=== PATIENT | male | born 1970 | race African-American/Black ===

== ENCOUNTER 2019-03-11 18:32 | Observation (INO) | payer MEDICARE, OTHER ==
[~2019-03-11] VITALS: Ht 177.8 cm; Wt 94.5 kg
--- NOTE | ~2019-03-11 | ST ---
PATIENT:HOLDEN FLETCHER MEDICAL RECORD: [id number] SEX: M LOCATION:D. D.212 ORDER #: ADMISSION DATE: 03/11/19 AGE OF PATIENT: 48 REFERRING PHYSICIAN: INTERPRETING PHYSICIAN: ENZO CRAWFORD MD DATE OF SERVICE: 03/13/2019 PROCEDURE: Nuclear stress test. INDICATION: Chest pain of unknown etiology. He was exercised on standard Lexiscan protocol with 33 mCi of sestamibi injected at peak stress, 11 mCi used previously for rest images. FINDINGS: Gated SPECT reveals preserved ejection fraction of greater than 60% with good wall motion and thickening and brightening throughout all segments. SPECT imaging Cardiolite was used as myocardial fusion agent. There is homogeneous uptake throughout all segments at rest and stress with no evidence of inducible ischemia or previous infarction. OVERALL IMPRESSION: 1. This is a normal nuclear stress test with no evidence of inducible ischemia or previous infarction. 2. Gated SPECT reveals a preserved ejection fraction of greater than 60%. In this patient with ongoing symptomatology, the current scan does not suggest the presence of hemodynamically significant coronary artery disease. Evaluate noncardiac etiology of chest pain. TRANSINT:[id number] Voice Confirmation ID: [id number] DOCUMENT ID: [id number] ENZO CRAWFORD MD CC: [id number] DICTATION DATE: 03/13/19 1326 HOT TAR ROOFER: 03/13/192018 DIS IN 03/13/19 [address] [id number] [place] [address]
--- NOTE | ~2019-03-11 | DS ---
PATIENT:HOLDEN FLETCHER :66 MEDICAL RECORD: [id number] DISCHARGE SUMMARY ADMISSION DATE: 03/11/19 DISCHARGE DATE: 03/13/19 DIAGNOSES 1. Chest pain. 2. Normal nuclear stress test. 3. Hypertension. Mr. Fletcher presents with chest discomfort; however, nuclear stress test was absolutely normal. His chest pain is noncardiac in etiology. No further cardiac workup needs to be ascertained. TRANSINT:[id number] Voice Confirmation ID: [id number] DOCUMENT ID: [id number] ENZO CRAWFORD MD CC: [id number] DICTATION DATE: 03/13/19 1326 PRODUCT SALES REPRESENTATIVE: 03/13/192052 DIS IN 03/13/19 [place] [id number] [place] [id number]
[2019-03-11] MEDS ORDERED: BP MED (18:42)
[2019-03-11 19:10] VITALS: BP 146/92
[2019-03-11 19:16] LABS: BASOPHILS 0.1 % (0-2); EOSINOPHILS 0.7 % (0-7); HEMOGLOBIN 14.2 g/dL (13.5-17.5); IMMATURE GRANULOCYTES 0.3 % (0-5); LYMPHOCYTES 36.3 % (15-50); MCH 26.6 pg (26.0-34.0); MCHC 35.5 g/dL (31.0-37.0); MCV 74.9 fL (80.0-100.0); MEAN PLATELET VOLUME 8.6 fL (7.4-10.4); MONOCYTES 7.2 % (2-11); NEUTROPHILS 55.4 % (40-80); PLATELET COUNT 353 10x3/uL (130-400); RBC 5.34 10x6/uL (4.20-6.10); RDW 16.1 % (11.5-14.5); WBC 6.9 10x3/uL (4.8-10.8)
[2019-03-11 19:27] LABS: APTT 25.8 SECONDS (22.8-39.4); INR 1.02 (0.85-1.17); PROTIME 12.9 SECONDS (11.6-15.0)
[2019-03-11 19:37] LABS: ALBUMIN 3.5 g/dL (3.4-5.0); ALKALINE PHOSPHATASE 112 U/L (46-116); ALT (SGPT) 26 U/L (10-68); BILIRUBIN - TOTAL 0.19 mg/dL (0.2-1.3); CALC OSMOLALITY 276 mosm/kg (275-300); CALCIUM 8.7 mg/dL (8.5-10.1); CARBON DIOXIDE 26.3 mmol/L (21.0-32.0); CHLORIDE - SERUM 103 mmol/L (98-107); GLUCOSE 132 mg/dL (74-106); POTASSIUM - SERUM 3.4 mmol/L (3.5-5.1); PROTEIN - SERUM 7.4 g/dL (6.4-8.2); SODIUM 138 mmol/L (136-145); UREA NITROGEN 10 mg/dL (7-18); eGFR NON AFRICAN AMERICAN 84 mL/min (90-120)
[2019-03-11 19:48] LABS: CKMB 2.9 U/L (0.0-3.6); CREATINE KINASE 135 UL (21-232)
[2019-03-11 19:49] LABS: TROPONIN-I < 0.017 ng/mL (0.000-0.060)
[2019-03-11 20:00] VITALS: BP 144/91
[2019-03-11 20:15] VITALS: BP 122/88
--- NOTE | 2019-03-11 20:28 | NUR ---
ADMIT TO ROOM 2120 FROM ER. ADMISSION HISTORY AND ASSESSMENT INITIATED. HOME MED RECOLLECTION IS POOR. PLAN OF CARE INITIATED. TELEMETRY STARTED.
[2019-03-12] VITALS: BP 137/85
[2019-03-12 02:46] LABS: BASOPHILS 0.3 % (0-2); EOSINOPHILS 0.6 % (0-7); HEMATOCRIT 39.7 % (42.0-54.0); HEMOGLOBIN 13.9 g/dL (13.5-17.5); IMMATURE GRANULOCYTES 0.3 % (0-5); LYMPHOCYTES 36.5 % (15-50); MCH 26.4 pg (26.0-34.0); MCV 75.3 fL (80.0-100.0); MEAN PLATELET VOLUME 8.6 fL (7.4-10.4); MONOCYTES 12.3 % (2-11); PLATELET COUNT 309 10x3/uL (130-400); RBC 5.27 10x6/uL (4.20-6.10); RDW 16.1 % (11.5-14.5); WBC 6.9 10x3/uL (4.8-10.8)
[2019-03-12 02:49] VITALS: BP 137/85; Ht 177.8 cm; Wt 94.5 kg
[2019-03-12 03:20] LABS: ALBUMIN 3.2 g/dL (3.4-5.0); ALKALINE PHOSPHATASE 105 U/L (46-116); ALT (SGPT) 22 U/L (10-68); BILIRUBIN - TOTAL 0.21 mg/dL (0.2-1.3); CALC OSMOLALITY 276 mosm/kg (275-300); CALCIUM 8.4 mg/dL (8.5-10.1); CARBON DIOXIDE 27.3 mmol/L (21.0-32.0); CHLORIDE - SERUM 105 mmol/L (98-107); CKMB 2.1 U/L (0.0-3.6); CREATINE KINASE 123 UL (21-232); CREATININE - SERUM 0.9 mg/dL (0.6-1.3); GLUCOSE 104 mg/dL (74-106); POTASSIUM - SERUM 3.5 mmol/L (3.5-5.1); PROTEIN - SERUM 6.8 g/dL (6.4-8.2); SODIUM 140 mmol/L (136-145); UREA NITROGEN 8 mg/dL (7-18); eGFR NON AFRICAN AMERICAN > 90 mL/min (90-120)
[2019-03-12 03:21] LABS: TROPONIN-I < 0.017 ng/mL (0.000-0.060)
[2019-03-12 04:00] VITALS: BP 132/90
--- NOTE | 2019-03-12 06:00 | NUR ---
PT SLEPT THROUGH THE NIGHT. VOICING NO REPORTS OF CHEST PAIN OR DISCOMFORT. IVF INFUSING. HAS BEEN NPO SINCE MIDNIGHT FOR CARDIAC EVAL PER MD. SR PER TELEMETRY. CPOC.
[2019-03-12] MEDS ORDERED: NORVASC10 MG PO (07:55)
[2019-03-12] MEDS ORDERED: COREG12.5 MG PO (07:56)
[2019-03-12] MEDS ORDERED: METHADONE 10 MG10 MG PO (07:56)
[2019-03-12 08:31] VITALS: BP 148/95
--- NOTE | 2019-03-12 09:00 | NUR ---
PT RESTING IN BED, SHIFT ASSESSMENT PERFORMED. DENIES ANY NEEDS AT THIS TIME, WILL CONT TO FOLLOW POC
[2019-03-12 09:02] LABS: CKMB 1.2 U/L (0.0-3.6); CREATINE KINASE 105 UL (21-232); TROPONIN-I < 0.017 ng/mL (0.000-0.060)
--- NOTE | 2019-03-12 11:23 | NUR ---
PT STATES HE HAS NOT TAKEN METHADONE IN OVER A MONTH AND HAS NO METHADONE AT HOME. PT STATES HE DOES NOT CURRENTLY HAVE ANY BACK PAIN. DISCUSSED CONCERNS WITH . NEW ORDER RECIEVED TO D/C METHADONE
--- NOTE | 2019-03-12 12:20 | NUR ---
PT WALKING AROUND UNIT PUSHING IV POLE. DENIES ANY NEEDS AT THIS TIME, WILL CONT TO FOLLOW POC
[2019-03-12 13:53] VITALS: BP 129/86
--- NOTE | 2019-03-12 16:25 | MORECARE ---
CASE MANAGEMENT DISCHARGE SUMMARY PATIENT: HOLDEN FLETCHER UNIT: [id number] ADM DATE: 03/11/19 AGE: 48 : 66 SEX: M ROOM/BED: D.2120 AUTHOR: RENNY CAPONE PHYSICIAN: REFERRING PHYSICIAN: ENZO CRAWFORD MD DATE OF SERVICE: 03/12/19 Discharge Plan Patient Name: HOLDEN FLETCHER [facility] [facility] 1970 Planned Disposition: Anticipated Discharge Date: Discharge Date: Expected LOS: Initial Reviewer: [email or web address] Initial Review Date: 03/11/2019 Generated: 03/12/19 5:25 pm Coverage Notice Reviewer: [email or web address] Randall Thorpe Notice Issued Date-Time: 03/12/2019 16:00 Notice Type: Medicare Outpatient Observation Notice Notice Delivered To: Patient Relationship to Patient: Self Command And Control Officer Name: Delivery Method: HAND - Hand Delivered Breanna Days: Prior Verbal Notification: Recipient Understood Notice: Yes Recipient Signature: Yes Med Rec Note Co-signed by Attending: Coverage Notice Comment: Patient Name: HOLDEN FLETCHER Page [id number] at 1625 All edits/amendments must be made on the electronic document DICTATION DATE: 03/12/191624 VULCANIZER: PRECIOUS 03/12/19 1625 RPT#: [id number] DC DATE: STATUS: ADM IN [facility] [address] [place] [address] END OF REPORT
--- NOTE | 2019-03-12 18:07 | NUR ---
PT RESTING IN BED WATCHING TV. DENIES ANY NEEDS AT THIS TIME, WILL CONT TO FOLLOW POC
--- NOTE | 2019-03-12 19:20 | NUR ---
RECEIVED REPORT, WILL ASSUME CARE OF PT, PT IS WALKING IN [place], WILL CONTINUE PLAN OF CARE
[2019-03-12 20:00] VITALS: BP 126/75
--- NOTE | 2019-03-12 22:02 | NUR ---
PT IS UP IN SHOWER
[2019-03-13] VITALS: BP 127/85
[2019-03-13 04:00] VITALS: BP 123/80
--- NOTE | 2019-03-13 04:28 | NUR ---
I have reviewed this patient and I concur with the Shift Assessment completed by the Licensed Practical Nurse today this shift.
--- NOTE | 2019-03-13 07:36 | NUR ---
PT RESTING IN BED, SHIFT ASSESSMENT PERFORMED. VITALS TAKEN AND WNL. DENIES ANY NEEDS AT THIS TIME. WILL CONT TO FOLLOW POC
[2019-03-13 07:38] VITALS: BP 145/93
--- NOTE | 2019-03-13 08:33 | NUR ---
SPOKE WITH [employer] TECH. TECH REQUEST NURSE TO HOLD AM MEDS UNTIL PT RETURNS FROM STRESS TEST. STRESS TEST IS SCHEDULED FOR 1000 THIS AM. TECH IS TALKING WITH PT AND EXPLAINING PROCEDURE TO PT AT THIS TIME
--- NOTE | 2019-03-13 09:20 | NUR ---
PT LEFT FLOOR WITH [employer] TECH
--- NOTE | 2019-03-13 11:28 | HP ---
PATIENT: HOLDEN FLETCHER MEDICAL RECORD: [id number] ACCOUNT: [id number] LOCATION:[address] : [birth year] ADMISSION DATE: 03/11/19 PCP: CHARLEEN HOLLAND HISTORY AND PHYSICAL EXAMINATION ADMITTING DIAGNOSES: 1. Chest pain compatible with angina. 2. Hypertension. 3. Family history of coronary artery disease. 4. Hyperlipidemia. 5. Smoking history. HISTORY OF PRESENT ILLNESS: This is a gentleman who presents with ongoing chest discomfort, it has been in a worsening fashion. It has been going on for quite some time; however, it has now progressed to where it is coming at rest and he is having shortness of breath, dyspnea on exertion with it as well. He does have a history of hypertension, history of premature coronary artery disease in his family, history of hyperlipidemia. He is on beta gustavo and calcium channel gustavo despite these. The chest pain has been worsening. His EKG is with no ST-T abnormalities. His troponins are normal. He continues to have episodes of chest discomfort. PHYSICAL EXAMINATION: GENERAL APPEARANCE: Well-nourished, well-developed, appears stated age. Level of distress, comfortable. PSYCHIATRIC: Mental status, alert, normal affect. Orientation, oriented to time, place and person. EYES: Lids and conjunctiva, noninjected. No discharge, no pallor. ENT: Lips, teeth, gums, normal dentition. Oropharynx, no cyanosis, no pallor. NECK: Carotid arteries, bilateral normal upstroke, no bruits, no thrills. JUGULAR VEINS: No jugular venous pressure or distention. CERVICAL LYMPH NODES: Nontender, nonenlarged. THYROID: Not enlarged. Nontender. No nodules. LUNGS: Respiratory effort, unlabored. CHEST: Normal curvature. No thoracic deformity. No chest wall tenderness. Percussion, resonant. Auscultation, clear. No wheezes, no rales, no rhonchi. CARDIOVASCULAR: Precordial exam, nondisplaced. No heaves or pericardial thrills. Rate and rhythm, regular. Heart sounds, normal S1, normal S2. No S3, no gallop, no rub. Systolic murmur, not heard. Diastolic murmur, not heard. EXTREMITIES: No cyanosis, no edema. Peripheral pulses, full and equal in all extremities, except as noted. No bruits appreciated. ABDOMEN: Soft, nondistended. Normal aorta. No bruit. Nontender. No masses. Liver, nontender, no hepatomegaly. Spleen, nontender, no splenomegaly. MUSCULOSKELETAL: No joint tenderness. No joint swelling. No erythema. NEUROLOGICAL: Normal gait, normal strength, normal tone. SKIN: Warm and dry. OVERALL IMPRESSION: We will maximize his medical therapy with the addition of long-acting nitrates to his calcium-channel gustavo and beta-gustavo. PLAN: For risk stratification with stress testing Cardiolite imaging. Further care depends upon findings of the stress test. TRANSINT:[id number] Voice Confirmation ID: [id number] DOCUMENT ID: [id number] HISTORY AND PHYSICAL [id number] HOLDEN FLETCHER JEFFREY MD at 1128 CC: [id number] DICTATION DATE: 03/12/19 0952 PAPER NOVELTY MAKER: 03/12/19 1022 ADM IN [id number] [place] [address]
--- NOTE | 2019-03-13 13:30 | NUR ---
DISCHARGE INSTRUCTIONS REVIEWED WITH PT AND ALL QUESTIONS ANSWERED. PIV REMOVED WITH CATHETER TIP INTACT. ASSISTED PT TO FRONT OF HOSPITAL VIA WHEELCHAIR.
--- NOTE | 2019-03-14 09:20 | MORECARE ---
CASE MANAGEMENT DISCHARGE SUMMARY PATIENT: HOLDEN FLETCHER UNIT: [id number] ADM DATE: 03/11/19 AGE: 48 : 66 SEX: M ROOM/BED: D.2120 AUTHOR: RENNY CAPONE PHYSICIAN: REFERRING PHYSICIAN: ENZO CRAWFORD MD DATE OF SERVICE: 03/14/19 Discharge Plan Patient Name: HOLDEN FLETCHER [facility] [facility] 1970 Planned Disposition: Home Anticipated Discharge Date: 03/13/19 Discharge Date: 03/13/2019 Expected LOS: 2 Initial Reviewer: [email or web address] Initial Review Date: 03/11/2019 Generated: 03/14/19 10:19 am Coverage Notice Reviewer: [email or web address] Randall Thorpe Notice Issued Date-Time: 03/12/2019 16:00 Notice Type: Medicare Outpatient Observation Notice Notice Delivered To: Patient Relationship to Patient: Self Clinical Applications Manager Name: Delivery Method: HAND - Hand Delivered Breanna Days: Prior Verbal Notification: Recipient Understood Notice: Yes Recipient Signature: Yes Med Rec Note Co-signed by Attending: Coverage Notice Comment: Last DP export: 03/12/19 3:25 p Patient Name: HOLDEN FLETCHER Page [phone] at 0920 All edits/amendments must be made on the electronic document DICTATION DATE: 03/14/19918 TELETYPESETTER: PRECIOUS 03/14/19918 RPT#: [id number] DC DATE:03/13/19 STATUS: DIS IN [facility] [address] [place] [address] END OF REPORT
== END 2019-03-13 13:30 | disposition home or self-care (01) ==
LOC: D.ER 18:32 → D.M2 19:52 → OBSVTIME 19:52 → D.M2 20:12
PROVIDERS: Family Medicine; ADMIT Internal Medicine Interventional Cardiology; ATTEND Internal Medicine Interventional Cardiology
DX: R07.9 Chest pain, unspecified (principal); I10 Essential (primary) hypertension; E78.5 Hyperlipidemia, unspecified; Z82.49 Family history of ischemic heart disease and other diseases of the circulatory system; Z87.891 Personal history of nicotine dependence